=== PATIENT | female | born 1990 | race Two or more races ===

== ENCOUNTER 2018-03-14 18:25 | Emergency (ER) | payer OTHER ==
[~2018-03-14] VITALS: Ht 157.5 cm; Wt 76.0 kg
[2018-03-14 18:32] VITALS: BP 126/76
[2018-03-14] MEDS ORDERED: BACITRACIN ZINC OINT 500U/GM, 0.9 GM ONE (22:44)
== END 2018-03-14 20:06 | disposition home or self-care (01) ==
LOC: ED 19:45
DX: S80.01XA Contusion of right knee, initial encounter (principal); W19.XXXA Unspecified fall, initial encounter; Y93.89 Activity, other specified; Y92.410 Unspecified street and highway as the place of occurrence of the external cause; Y99.8 Other external cause status
CPT/HCPCS: 99281